=== PATIENT | female | born 1975 | race African-American/Black ===

== ENCOUNTER 2016-05-25 12:36 | Emergency (ER) | payer MEDICAID ==
[~2016-05-25] VITALS: Ht 157.5 cm; Wt 110.0 kg
[~2016-05-25 12:36] MED LIST: LISI-363 PO; METF500 PO; ZOCO40TA PO
[2016-05-25 12:40] VITALS: BP 160/95; PULSE 87; RESP 16; TEMP 98.8; O2SAT 100
[2016-05-25] MEDS ORDERED: SODIUM CHLORIDE 0.9% FLUSH 5 ML FLUSH IVF PRN (13:00)
[2016-05-25 13:22] VITALS: O2SAT 100
--- NOTE | 2016-05-25 13:22 | PD ---
HPI Chief Complaint: Diabetic Time Seen by Provider: 13:13 Travel History International Travel<30 days: No Contact w/Intl Traveler<30days: No Traveled to known affect area: No History of Present Illness HPI 41-year-old female with history of 3 gestational diabetes, hypertension, currently 18 weeks following up with [facility], had an ultrasound at 13 weeks which was normal. She presents to the ER today because she has been feeling dizzy, lightheaded. She denies any chest pains, shortness of breath, vomiting, abdominal pains, or other symptoms. Modifying Factors: None Associated Signs & Symptoms: Lightheadedness Risk Factors: , history of hypertension and diabetes PFSH Past Medical History Hx Anticoagulant Therapy: No Arthritis: No Asthma: No Autoimmune Disease: No Blood Disorders: No Anxiety: No Depression: No Heart Rhythm Problems: No Cancer: No Cardiovascular Problems: Yes High Cholesterol: Yes Chemotherapy: No Chest Pain: No Congestive Heart Failure: No COPD: No Cerebrovascular Accident: No Diabetes: Yes Diminished Hearing: No Gastrointestinal Disorders: No GERD: Yes Glaucoma: No Headaches: Yes Hepatitis: No Hiatal Hernia: No Hypertension: Yes Kidney Stones: Yes Musculoskeletal: No Neurologic: No Psychiatric: No Reproductive: Yes (IRREGULAR PERIODS SINCE NORPLANT REMOVED IN 1993) Respiratory: No Myocardial Infarction: No Renal Failure: No Seizures: No Sleep Apnea: No Thyroid Disease: No Ulcer: No PNEUMOCCOCAL Vaccine (Year): 3 ?: LMP: 01/20/16 Menopausal: No : 2 Para: 0 Miscarriage: 2 : 0 Ovarian Cysts: Yes Past Surgical History AICD: No Endocrine Surgery: Yes (PARATHYROID GLAND REMOVED) Genitourinary Surgery: Yes (KIDNEY STONES AND STENT INSTALLATION) Hysterectomy: No Pacemaker: No Other Surgery: Yes (LITHOTRIPSY) Social History Alcohol Use: Yes (OCCASIONAL) Tobacco Use: No Substance Use: No Allergies-Medications (Allergen,Severity, Reaction): Coded Allergies: Penicillin (Verified Allergy, Severe, HIVES, 05/25/16) Reported Meds & Prescriptions Reported Meds & Active Scripts Active Reported Novolin N Inj (Insulin Human NPH) 1,000 Unit/10 Ml Vial 15 Units SQ HS Novolin N Inj (Insulin Human NPH) 1,000 Unit/10 Ml Vial 36 Units SQ DAILY Novolin R Inj (Insulin Human Regular) 1,000 Unit/10 Ml Vial 15 Units SQ HS Novolin R Inj (Insulin Human Regular) 1,000 Unit/10 Ml Vial 20 Units SQ DAILY Review of Systems Except as stated in HPI: all other systems reviewed are Neg Physical Exam Narrative GENERAL: Well-nourished, well-developed middle age -[place] female patient in no acute distress. Awake, alert, oriented 3. Ambulatory in the ER without issues. SKIN: Warm and dry. HEAD: Normocephalic. EYES: No scleral icterus. No injection or drainage. NECK: Supple, trachea midline. CARDIOVASCULAR: Regular rate and rhythm without murmurs, gallops, or rubs. RESPIRATORY: Breath sounds equal bilaterally. No accessory muscle use. GASTROINTESTINAL: Abdomen soft, non-tender, nondistended. MUSCULOSKELETAL: No cyanosis, or edema. BACK: Nontender without obvious deformity. No CVA tenderness. Data Data Last Documented VS Vital Signs Date Time Temp Pulse Resp B/P Pulse Ox O2 Delivery O2 Flow Rate FiO2 05/25/16 14:45 89 18 167/98 98 Room Air 05/25/16 12:40 98.8 Orders Electrocardiogram (05/25/16 12:54) Complete Blood Count With Diff (05/25/16 12:54) Comprehensive Metabolic Panel (05/25/16 12:54) Magnesium (Mg) (05/25/16 12:54) Urinalysis - C+S If Indicated (05/25/16 12:54) Ecg Monitoring (05/25/16 12:54) Iv Access Insert/Monitor (05/25/16 12:54) Oximetry (05/25/16 12:54) Sodium Chloride 0.9% Flush (Ns Flush) (05/25/16 13:00) Blood Glucose (05/25/16 12:54) Labetalol (Trandate) (05/25/16 14:00) Heart Tones (05/25/16 13:51) Labs Laboratory Tests Test 05/25/16 13:25 White Blood Count 8.2 TH/MM3 Red Blood Count 4.26 MIL/MM3 Hemoglobin 12.0 GM/DL Hematocrit 35.7 % Mean Corpuscular Volume 83.9 FL Mean Corpuscular Hemoglobin 28.1 PG Mean Corpuscular Hemoglobin 33.5 % Concent Red Cell Distribution Width 13.9 % Platelet Count 245 TH/MM3 Mean Platelet Volume 8.3 FL Neutrophils (%) (Auto) 74.9 % Lymphocytes (%) (Auto) 18.8 % Monocytes (%) (Auto) 4.9 % Eosinophils (%) (Auto) 0.9 % Basophils (%) (Auto) 0.5 % Neutrophils # (Auto) 6.2 TH/MM3 Lymphocytes # (Auto) 1.5 TH/MM3 Monocytes # (Auto) 0.4 TH/MM3 Eosinophils # (Auto) 0.1 TH/MM3 Basophils # (Auto) 0.0 TH/MM3 CBC Comment DIFF FINAL Differential Comment Urine Collection Type CLEAN CATCH Urine Color YELLOW Urine Turbidity CLOUDY Urine pH 7.0 Urine Specific [place] 1.020 Urine Protein NEG mg/dL Urine Glucose (UA) NEG mg/dL Urine Ketones NEG mg/dL Urine Occult Blood NEG Urine Nitrite NEG Urine Bilirubin NEG Urine Leukocyte Esterase NEG Urine WBC 0-2 /hpf Urine Squamous Epithelial 0-5 /hpf Cells Urine Amorphous Sediment MOD Urine Bacteria OCC /hpf Microscopic Urinalysis Comment CULT NOT INDICATED Sodium Level 140 MEQ/L Potassium Level 3.7 MEQ/L Chloride Level 106 MEQ/L Carbon Dioxide Level 27.3 MEQ/L Anion Gap 7 MEQ/L Blood Urea Nitrogen 7 MG/DL Creatinine 0.60 MG/DL Estimat Glomerular Filtration 134 ML/MIN Rate Random Glucose 79 MG/DL Calcium Level 8.9 MG/DL Magnesium Level 1.7 MG/DL Total Bilirubin 0.2 MG/DL Aspartate Amino Transf 15 U/L (AST/SGOT) Alanine Aminotransferase 25 U/L (ALT/SGPT) Alkaline Phosphatase 66 U/L Total Protein 7.2 GM/DL Albumin 3.0 GM/DL [facility] Medical Decision Making Medical Screen Exam Complete: Yes Emergency Medical Condition: Yes Medical Record Reviewed: Yes Interpretation(s) EKG shows NSR, no ST elevation or depression, and no arrhythmias. No significant T-wave inversions. Laboratory Tests Test 05/25/16 13:25 Neutrophils (%) (Auto) 74.9 % (16.0-70.0) Urine Turbidity CLOUDY (CLEAR) Urine Bacteria OCC /hpf (NONE) Albumin 3.0 GM/DL (3.4-5.0) Differential Diagnosis Lightheadedness, dehydration versus metabolic issues versus dysrhythmias versus UTI versus hypertensive urgency Narrative Course Lab work is fairly unremarkable. She does have bacteriuria and my plan would be to treat her UTI. Her blood pressure is fairly elevated in the ER and labetalol was given in the ER. The case was discussed with Dr. Porter who physician covering for [facility] office which patient follows up with and she states that she would have the patient follow-up with them in the office tomorrow for further evaluation. She does not feel that this is preeclampsia at this point, patient is fairly early in her gestation. She should return for any worsening in symptoms as necessary. She has no focal neurological deficits here. The plan was discussed with her and she states understanding. Diagnosis Primary Impression: DIZZINESS AND GIDDINESS Additional Impressions: UTI (urinary tract infection) Hypertension during Additional Instructions: Follow-up with your [facility] tomorrow. Return for any worsening in symptoms as necessary. Med/Other Pt SpecificInfo: Prescription(s) given Scripts Nitrofurantoin Monohydrate Macrocrystals (Macrobid)100 Mg [id number] Mg PO BID 7 Days Ref 0 Prov:Susan Reeves MD 05/25/16 Disposition: 01 DISCHARGE HOME Condition: Stable Susan Reeves MD May 25, 2016 13:22
[2016-05-25 13:39] LABS: AUTOMATED NEUTROPHIL # 6.2 TH/MM3 (1.8-7.7); BASOPHIL % 0.5 % (0.0-2.0); EOSINOPHIL # 0.1 TH/MM3 (0-0.4); EOSINOPHIL % 0.9 % (0.0-4.0); HEMATOCRIT 35.7 % (35.0-46.0); HEMO FLAGS DIFF FINAL; LYMPH % 18.8 % (9.0-44.0); LYMPHOCYTE # 1.5 TH/MM3 (1.0-4.8); MEAN CELL VOLUME 83.9 FL (80.0-100.0); MEAN CORPUSCULAR HEMOGLOBIN 28.1 PG (27.0-34.0); MEAN CORPUSCULAR HGB CONC 33.5 % (32.0-36.0); MONO % 4.9 % (0.0-8.0); NEUT % 74.9 % (16.0-70.0); PLATELET COUNT 245 TH/MM3 (150-450); RED BLOOD COUNT 4.26 MIL/MM3 (4.00-5.30); RED CELL DISTRIBUTION WIDTH 13.9 % (11.6-17.2); WHITE BLOOD COUNT 8.2 TH/MM3 (4.0-11.0)
[2016-05-25] MEDS ORDERED: NOVONP2 SQ ×2 (13:40)
[2016-05-25] MEDS ORDERED: NOVORP2 SQ ×2 (13:40)
[2016-05-25 13:43] LABS: BLOOD, URINE NEG (NEG); GLUCOSE,URINE NEG (NEG); KETONE, URINE NEG (NEG); NITRITE,URINE NEG (NEG)
[2016-05-25 13:45] LABS: METHOD OF COLLECTION CLEAN CATCH; URINE COLOR YELLOW (YELLW/STRAW)
[2016-05-25 13:47] LABS: BACTERIA, URINE OCC /hpf; CHLORIDE 106 MEQ/L (98-107); POTASSIUM 3.7 MEQ/L (3.5-5.1); SODIUM (NA) 140 MEQ/L (136-145); SQUAMOUS EPITHELIAL CELL URINE 0-5 /hpf (0-5); WBC, URINE 0-2 /hpf (0-5)
[2016-05-25 13:48] LABS: COMMENT (UR) CULT NOT INDICATED; CULTURE IF INDICATED CULT NOT INDICATED
[2016-05-25 13:51] LABS: ANION GAP 7 MEQ/L (5-15); BICARBONATE 27.3 MEQ/L (21.0-32.0); BLOOD UREA NITROGEN 7 MG/DL (7-18); MAGNESIUM 1.7 MG/DL (1.5-2.5)
[2016-05-25 13:54] LABS: ALT (GPT) 25 U/L (10-53); AST (GOT) 15 U/L (15-37); GLOMERULAR FILTRATION RATE 134 ML/MIN (>89)
[2016-05-25 13:55] LABS: TOTAL BILIRUBIN ADULT 0.2 MG/DL (0.2-1.0)
[2016-05-25 13:57] LABS: ALKALINE PHOSPHATASE 66 U/L (45-117)
[2016-05-25] MEDS ORDERED: LABETALOL HCL 100 MG TAB PO ONE (14:00)
[2016-05-25 14:45] VITALS: BP 167/98; PULSE 89; RESP 18; O2SAT 98
[2016-05-25] MEDS ORDERED: MACR100C2 PO (14:57)
--- NOTE | 2016-05-25 15:54 | EKG ---
Date Performed: 05/25/2016 Time Performed: 13:21:54 PTAGE: 41 years EKG: Sinus rhythm Normal ECG NO SIGNIFICANT CHANGE FROM PRIOR ELECTROCARDIOGRAM. PREVIOUS TRACING : 06/28/2015 08.40 DOCTOR: Chester Hutson Interpretating Date/Time 05/25/2016 15:53:23
== END 2016-05-25 15:28 | disposition home or self-care (01) ==
LOC: PHED 12:36
DX: O10.012 Pre-existing essential hypertension complicating pregnancy, second trimester (principal); O24.414 Gestational diabetes mellitus in pregnancy, insulin controlled; O09.522 Supervision of elderly multigravida, second trimester; O23.42 Unspecified infection of urinary tract in pregnancy, second trimester; R42 Dizziness and giddiness; Z3A.18 18 weeks gestation of pregnancy
CPT/HCPCS: 80053; 81001; 83735; 85025; 93005

== ENCOUNTER → 2016-06-15 | Outpatient (CLI) | payer MEDICAID ==
[~2016-06-15] MED LIST changes: -LISI-363 PO; +MACR100C2 PO; -METF500 PO; +NOVONP2 SQ; +NOVORP2 SQ; -ZOCO40TA PO
== END ==
LOC: HPND 08:20
PROVIDERS: ATTEND Obstetrics & Gynecology
DX: O09.522 Supervision of elderly multigravida, second trimester (principal); O24.410 Gestational diabetes mellitus in pregnancy, diet controlled
CPT/HCPCS: 76811; 76825; 76827; 93325

== ENCOUNTER → 2016-07-13 | Outpatient (CLI) | payer MEDICAID | LOC: HPND 08:04 | PROVIDERS: ATTEND Obstetrics & Gynecology | DX: O09.522 Supervision of elderly multigravida, second trimester (principal); O24.112 Pre-existing type 2 diabetes mellitus, in pregnancy, second trimester; O10.912 Unspecified pre-existing hypertension complicating pregnancy, second trimester; O43.192 Other malformation of placenta, second trimester; Z3A.24 24 weeks gestation of pregnancy | CPT/HCPCS: 76816 ==

== ENCOUNTER → 2016-08-11 | Outpatient (CLI) | payer MEDICAID | LOC: HPND 09:31 | PROVIDERS: ATTEND Obstetrics & Gynecology | DX: O09.523 Supervision of elderly multigravida, third trimester (principal); O24.415 Gestational diabetes mellitus in pregnancy, controlled by oral hypoglycemic drugs; O10.013 Pre-existing essential hypertension complicating pregnancy, third trimester; E66.01 Morbid (severe) obesity due to excess calories; Z68.41 Body mass index [BMI] 40.0-44.9, adult; Z3A.29 29 weeks gestation of pregnancy; Z79.4 Long term (current) use of insulin | CPT/HCPCS: 76816 ==

== ENCOUNTER 2017-09-13 00:46 | Emergency (ER) | payer BC, MEDICAID ==
[2017-09-13 00:48] VITALS: BP 208/113; PULSE 83; RESP 16; TEMP 98.4; O2SAT 100
[2017-09-13 01:03] VITALS: BP 180/105; PULSE 81; RESP 17; O2SAT 100
[2017-09-13] MEDS ORDERED: oxyCODONE/ACETAMINOPHEN 5 MG/325 MG TAB PO ONE (01:15)
[2017-09-13] MEDS ORDERED: IBUPROFEN 800 MG TAB PO ONE (01:15)
[2017-09-13] MEDS ORDERED: NEOMYCIN/POLYMYXIN/HYDROCORT OTIC SUSP 10 ML BTL LEFT EAR ONE (01:15)
--- NOTE | 2017-09-13 01:22 | PD ---
HPI Chief Complaint: ENT Complaint Time Seen by Provider: 01:06 Travel History International Travel<30 days: No Contact w/Intl Traveler<30days: No Traveled to known affect area: No History of Present Illness HPI 42-year-old female presents to the emergency department for complaint of nontraumatic severe 10/10 left ear pain 2 days. Patient states she has noted some swelling. No drainage. No bleeding. No fever chills. No sore throat or earache. No submandibular lymphadenopathy. She states she has high blood pressure and takes Norvasc 10 mg daily but has been using ibuprofen and Tylenol for pain relief and has noted blood pressures been elevated. Patient cannot get any pain relief. Patient does not complain of any chest pain shortness of breath nausea vomiting next stiffness referred neck jaw back shoulder arm pain. Patient is unable to identify exacerbating or alleviating factors. PFSH Past Medical History Narrative Medical Hypertension dyslipidemia kidney stones ovarian cyst gestational diabetes obesity; occasional alcohol use; nursing notes reviewed Hx Anticoagulant Therapy: No Arthritis: No Asthma: No Autoimmune Disease: No Blood Disorders: No Anxiety: No Depression: No Heart Rhythm Problems: No Cancer: No Cardiovascular Problems: Yes High Cholesterol: Yes Chemotherapy: No Chest Pain: No Congestive Heart Failure: No COPD: No Cerebrovascular Accident: No Diabetes: Yes (ORAL MEDICATION) Patient Takes Glucophage: Yes Diminished Hearing: No Gastrointestinal Disorders: No GERD: Yes Glaucoma: No Headaches: Yes Hepatitis: No Hiatal Hernia: No Hypertension: Yes Kidney Stones: Yes Medical other: Yes (GERD) Musculoskeletal: No Neurologic: No Psychiatric: No Reproductive: Yes (IRREGULAR PERIODS SINCE NORPLANT REMOVED IN 1993) Respiratory: No Myocardial Infarction: No Renal Failure: No Seizures: No Sleep Apnea: No Thyroid Disease: No Ulcer: No PNEUMOCCOCAL Vaccine (Year): 3 ?: Unknown Menopausal: No : 2 Para: 0 Miscarriage: 2 : 0 Ovarian Cysts: Yes Past Surgical History AICD: No Endocrine Surgery: Yes (PARATHYROID GLAND REMOVED) Genitourinary Surgery: Yes (KIDNEY STONES AND STENT INSTALLATION) Hysterectomy: No Pacemaker: No Other Surgery: Yes (LITHOTRIPSY) Social History Alcohol Use: Yes (OCCASIONAL) Tobacco Use: No Substance Use: No Allergies-Medications (Allergen,Severity, Reaction): Coded Allergies: penicillin G (Unverified Allergy, Severe, HIVES, 09/13/17) Reported Meds & Prescriptions Reported Meds & Active Scripts Active Macrobid (Nitrofurantoin Monoh/Nitrofur Macro) 100 Mg Cap 100 Mg PO BID 7 Days Reported Novolin N Inj (Insulin Human NPH) 1,000 Unit/10 Ml Vial 15 Units SQ HS Novolin N Inj (Insulin Human NPH) 1,000 Unit/10 Ml Vial 36 Units SQ DAILY Novolin R Inj (Insulin Human Regular) 1,000 Unit/10 Ml Vial 15 Units SQ HS Novolin R Inj (Insulin Human Regular) 1,000 Unit/10 Ml Vial 20 Units SQ DAILY Review of Systems Except as stated in HPI: all other systems reviewed are Neg General / Constitutional: No: Fever, Chills HENT: Positive: Earache, No: Congestion Cardiovascular: No: Chest Pain or Discomfort Respiratory: No: Shortness of Breath Gastrointestinal: No: Nausea, Vomiting Genitourinary: No: Dysuria Musculoskeletal: No: Pain Skin: No Rash Neurologic: No: Weakness Psychiatric: No: Anxiety Hematologic/Lymphatic: No: Lymph Node Enlargement Physical Exam Narrative GENERAL: Well-developed well-nourished female no acute distress no respiratory distress; hypertensive SKIN: Warm and dry. HEAD: Normocephalic. EYES: No scleral icterus. No injection or drainage. ENT: Mucous membranes moist airways patent posterior pharynx no redness edema or exudative change; right tympanic membrane no redness no dullness or loss of landmarks; left tympanic membrane is obscured by edema of the external auditory canal and scant cerumen no purulent drainage or blood noted. Patient does not have any tenderness of the tragus direct palpation small preauricular lymph node to palpation no induration no erythema no increased warmth no fluctuance no postauricular tenderness or soft tissue swelling. NECK: Supple, trachea midline. No JVD or lymphadenopathy. No meningismus no nuchal rigidity CARDIOVASCULAR: Regular rate and rhythm without murmurs, gallops, or rubs. RESPIRATORY: Breath sounds equal bilaterally. No accessory muscle use. GASTROINTESTINAL: Abdomen soft, non-tender, nondistended. MUSCULOSKELETAL: No cyanosis, or edema. BACK: Nontender without obvious deformity. No CVA tenderness. Data Data Last Documented VS Vital Signs Date Time Temp Pulse Resp B/P (MAP) Pulse Ox O2 Delivery O2 Flow Rate FiO2 09/13/17 02:30 83 17 165/86 (112) 100 Room Air 09/13/17 00:48 98.4 Orders Orders [id number] Otic Susp (Cortispo (09/13/17 01:15) Oxycodone-Acetamin 5-325 Mg (Percocet (09/13/17 01:15) Ibuprofen (Motrin) (09/13/17 01:15) Ed Discharge Order (09/13/17 03:00) MDM Medical Decision Making Medical Screen Exam Complete: Yes Emergency Medical Condition: Yes Medical Record Reviewed: Yes Differential Diagnosis Otitis media otitis externa abscess tympanic membrane perforation uncontrolled hypertension, hypertensive urgency Narrative Course 42-year-old female with known hypertension reports medication compliance presents with hypertension and severe 10/10 ear pain with findings consistent with otitis externa. Patient is not taking acetaminophen for 4-5 hours and has not taken any ibuprofen since 11 AM; patient administered Percocet 5/325 along with ibuprofen 800 mg also 3 drops of Cortisporin Otic to the left external auditory canal and placement of a wick Blood pressure reassessed after pain medication and application of ear wick and Cortisporin Otic Pain is markedly improved and blood pressure has improved after pain managed Patient is stable for outpatient management and follow-up with his primary care provider as well as [facility] Diagnosis Primary Impression: Otitis externa Qualified Codes: H60.502 - Unspecified acute noninfective otitis externa, left ear Additional Impression: Hypertension Referrals: Ear / Nose / Throat Specialist call for appointment Primary Care Physician 2 days Patient Instructions: General Instructions Additional Instructions: Continue to take her blood pressure medication as prescribed Take pain medication as prescribed as needed Continue to use eardrops as prescribed Follow-up with her primary care provider call office in a.m. to schedule follow- up appointment next 1-2 days Follow-up in [facility] Return the emergency department for any concerns or change in condition Med/Other Pt SpecificInfo: Prescription(s) given Scripts Ibuprofen (Ibuprofen) 800 Mg Tab 800 MG PO Q8H Y for Pain/Inflammation, #10 TAB 0 Refills Prov: Erika Frias MD 09/13/17 Oxycodone-Acetaminophen (Percocet) 5-325 mg Tab 1 TAB PO Q6H Y for PAIN, #5 TAB 0 Refills Prov: Erika Frias MD 09/13/17 Ciprofloxacin Otic Drops (Ciprofloxacin Otic Drops) 0.2% Soln 0.25 ML LEFT EAR BID for Infection, #1 BOX 0 Refills Prov: Erika Frias MD 09/13/17 Disposition: 01 DISCHARGE HOME Condition: Stable Erika Frias MD September 13, 2017 01:22
[2017-09-13 02:30] VITALS: BP 165/86; PULSE 83; RESP 17; O2SAT 100
[2017-09-13] MEDS ORDERED: CIPR0.2S LEFT EAR (03:02)
[2017-09-13] MEDS ORDERED: PERC5TAB12 PO (03:02)
[2017-09-13] MEDS ORDERED: IBUP1TAB7 PO (03:02)
== END 2017-09-13 03:28 | disposition home or self-care (01) ==
LOC: NEPC 00:46
DX: H60.502 Unspecified acute noninfective otitis externa, left ear (principal); I10 Essential (primary) hypertension
CPT/HCPCS: 99283